=== PATIENT | female | born 1995 | race Two or more races ===

== ENCOUNTER 2024-03-10 15:55 | Emergency (ER) | payer SELFPAY ==
[~2024-03-10] VITALS: Ht 162.6 cm; Wt 71.9 kg
[2024-03-10 16:22] VITALS: PULSE 91; RESP 17; O2SAT 97
[2024-03-10] MEDS: KETOROLAC TROMETH 30 MG/ML 1ML VIAL IM ONE (16:24)
[2024-03-10] MEDS: CYCLOBENZAPRINE HCL 10 MG TAB PO ONE (16:24)
[2024-03-10] MEDS ORDERED: IBUP-1454 PO (16:44)
[2024-03-10] MEDS ORDERED: CYCL-837 PO (16:44)
[2024-03-10 17:03] VITALS: BP 134/86; PULSE 84; RESP 16; O2SAT 96
== END 2024-03-10 17:02 | disposition home or self-care (01) ==
LOC: ER 15:55
DX: M54.2 Cervicalgia (principal); Z79.1 Long term (current) use of non-steroidal anti-inflammatories (NSAID); V89.2XXA Person injured in unspecified motor-vehicle accident, traffic, initial encounter; Y93.89 Activity, other specified; Y92.410 Unspecified street and highway as the place of occurrence of the external cause; Y99.8 Other external cause status
CPT/HCPCS: 96372; 99283; J1885